=== PATIENT | female | born 1950 | race Caucasian/White ===

== ENCOUNTER → 2022-11-23 | Outpatient (CLI) | payer MEDICARE ==
--- NOTE | 2022-11-23 16:36 | Diagnostic Imaging Report ---
EXAM: CHEST PA/LAT (2 VIEW) INDICATION: Cough. Hypoxia. COMPARISON: None. FINDINGS: Borderline heart size and mild pulmonary vascular congestion. No focal pulmonary opacity. No pleural effusion or pneumothorax. No acute osseous findings. IMPRESSION: Borderline heart size and mild pulmonary vascular congestion. No focal pulmonary opacity. Dictated by: Dictated on workstation # [id number]
== END ==
LOC: RAD 15:50 → EDBD 15:50
PROVIDERS: ATTEND Family Medicine
DX: R00.9 Unspecified abnormalities of heart beat (principal); R05.9 Cough, unspecified; R09.02 Hypoxemia
CPT/HCPCS: 71046